=== PATIENT | female | born 1945 | race Caucasian/White ===

== ENCOUNTER → 2019-01-04 | Outpatient (CLI) | payer MEDICARE ==
[~2019-01-04] MED LIST: AMIT10TA PO; GADOBUTROL 10 MMOL/10 ML VIAL IV ONE; MECL12.52 PO; TRIA1CAP3 PO
--- NOTE | 2019-01-04 11:29 | KCIC ---
EXAM: Brain and internal auditory canal MRI with and without contrast. HISTORY: Asymmetric sensorineural hearing loss TECHNIQUE: Multiplanar, multisequence magnetic resonance imaging of the brain an internal auditory canals was performed prior to and following the administration of 8 cc Gadavist intravenous contrast. COMPARISON: None. FINDINGS: There is no restricted diffusion to suggest acute or subacute infarction. There is no susceptibility effect to suggest hemorrhage. There is no mass effect or midline shift. There is no hydrocephalus. No suspicious white matter lesion is seen. There is mild age-appropriate cerebral volume loss. The orbits and paranasal sinuses are unremarkable. The mastoid air cells are clear. There are normal flow voids within the cerebral vessels. The cerebellopontine angles and membranous labyrinths are unremarkable. The vestibulocochlear nerves, facial nerves and trigeminal nerve complexes are unremarkable. Suspicious enhancing lesion is seen. IMPRESSION: No acute intracranial finding or finding to correlate with reported sensorineural hearing loss. Electronically signed by: Alena Negron MD (01/04/2019 11:26 AM) [id number]
== END | disposition home or self-care (01) ==
LOC: KCIC MRI 09:01
PROVIDERS: ATTEND Otolaryngology
DX: H90.5 Unspecified sensorineural hearing loss (principal); Z88.8 Allergy status to other drugs, medicaments and biological substances
CPT/HCPCS: 70553; 82565; A9585